=== PATIENT | female | born 1985 | race Hispanic/Latino ===

== ENCOUNTER 2019-12-22 22:45 | Emergency (ER) | payer SELFPAY ==
[2019-12-22] MEDS ORDERED: Ketorolac Tromethamine 30 MG/ML VIAL ONE (23:25)
[2019-12-22] MEDS ORDERED: Metoclopramide HCl 10 MG/2 ML VIAL ONE (23:25)
[2019-12-22] MEDS ORDERED: diphenhydrAMINE 50 MG/ML VIAL ONE (23:25)
== END 2019-12-23 01:15 | disposition home or self-care (01) ==
LOC: ERS 22:45
DX: R51.9 Headache, unspecified (principal); E03.9 Hypothyroidism, unspecified; Z79.899 Other long term (current) drug therapy
CPT/HCPCS: 96365; 96375; J1200; J1885; J2765